=== PATIENT | female | born 2005 | race Caucasian/White ===

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

== ENCOUNTER 2023-10-27 12:44 | Emergency (ER) | payer MEDICAID ==
[~2023-10-27] VITALS: Ht 172.7 cm; Wt 97.0 kg
[~2023-10-27 12:44] MED LIST changes: -AMPICILLIN 1,000 MG in SODIUM CHLORIDE 0.9% 50 ML IV SCH; -TOPUD PO
[2023-10-27 12:57] VITALS: BP 129/78; PULSE 94; RESP 20; TEMP 98.1; O2SAT 97
[2023-10-28] MEDS ORDERED: PHEN177S49 MM (16:10)
[2023-10-28] MEDS ORDERED: BENZ1LOZ42 MM (16:10)
== END 2023-10-27 16:26 | disposition left against medical advice (07) ==
LOC: ER 12:44
DX: R50.9 Fever, unspecified (principal)
CPT/HCPCS: 99281

== ENCOUNTER 2023-10-28 13:48 | Emergency (ER) | payer MEDICAID ==
[~2023-10-28] VITALS: Ht 172.7 cm; Wt 104.0 kg
[2023-10-28 13:56] VITALS: BP 136/91; TEMP 98.3; O2SAT 100
[2023-10-28] MEDS: IBUPROFEN 600MG TABLET PO STA (15:08)
[2023-10-28] MEDS ORDERED: PHEN177S49 MM (16:10)
[2023-10-28] MEDS ORDERED: BENZ1LOZ42 MM (16:10)
[2023-10-28 16:17] VITALS: PULSE 98; RESP 16
== END 2023-10-28 16:22 | disposition home or self-care (01) ==
LOC: ER 13:48
DX: J02.9 Acute pharyngitis, unspecified (principal); Z20.822 Contact with and (suspected) exposure to COVID-19
CPT/HCPCS: 87070; 87426; 87430; 87804; 99283